=== PATIENT | male | born 1965 | race Caucasian/White ===

== ENCOUNTER 2021-03-29 21:26 | Inpatient (IN) | payer MEDICAID ==
[~2021-03-29] VITALS: Ht 175.3 cm; Wt 117.0 kg
[2021-03-30] VITALS (7 sets, daily range): BP systolic 108–203; BP diastolic 74–103
[2021-03-30] MEDS ORDERED: heparin 10,000 units/1 ML INJ IV ONE (05:25)
[2021-03-30] MEDS ORDERED: acetaminophen 325mg tablet PO PRN ×2 (05:25)
[2021-03-30] MEDS ORDERED: PERFLUTREN PROTEIN-A MICROSPHR (Optison) 0.22 MG/ML 3ML VIAL IV ONE (05:25)
[2021-03-30] MEDS ORDERED: magnesium 2GM in 50ml NS 50 ML IV PRN (05:25)
[2021-03-30] MEDS ORDERED: heparin 25,000 UNIT/250ml bag 250 ML IV SCH (05:25)
[2021-03-30] MEDS ORDERED: magnesium Cl slow-release 64mg tablet PO PRN (05:25)
[2021-03-30] MEDS ORDERED: potassium Cl 20 mEq SR tablet PO PRN ×2 (05:25)
[2021-03-30] MEDS ORDERED: magnesium 4gm in 100ml NS 100 ML IV PRN (05:25)
[2021-03-30] MEDS ORDERED: MESSAGE TO PHARMACY PO ONE (05:30)
[2021-03-30] MEDS ORDERED: dextrose 50%-water 50ml dispensing syringe IV PRN ×2 (05:30)
[2021-03-30] MEDS ORDERED: glucagon, human recombinant 1mg kit SUBCUT PRN (05:30)
[2021-03-30] MEDS ORDERED: dextrose ORAL solution 15 GM/59 ML bottle PO PRN ×2 (05:30)
[2021-03-30] MEDS ORDERED: regadenoson 0.4mg/5ml syringe IV PRN (06:15)
[2021-03-30] MEDS ORDERED: metoprolol tartrate 1mg/ml inj IV PRN (06:15)
[2021-03-30] MEDS ORDERED: aminophylline 250mg/10ml inj. IV PRN (06:15)
--- NOTE | 2021-03-30 06:32 | NUR ---
PT ARRIVED TO THE UNIT AT AROUND 0630, DR ARMSTRONG PAGED AND CAME TO ASSESS PATIENT. PT APPEARED LETHARGIC, COMPLAINED OF MILD CHEST PAIN. VITALS ARE STABLE, BG IS 213 AND BEDSIDE EKG PERFORMED, SEEN AND SIGNED BY THE DOCTOR. REPORT GIVEN TO MORNING SHIFT ANA Rehman
--- NOTE | 2021-03-30 06:35 | NUR ---
Patient in room PCU 3012. I have received report from Mandi PEREZ and had the opportunity to ask questions and assume patient care. Per Mandi, pt just arrived, EKG done, Dr. Liang signed, Dr. Liang aware of chest pain. pt semi fowlers in bed endorsing 5/10 chest pain.
--- NOTE | 2021-03-30 06:48 | NUR ---
Per Dr. Liang, start heparin at previous hospitals dose of 12U/KG. do not bolus.
[2021-03-30 06:51] LABS: PARTIAL THROMBOPLASTIN TIME 28 SECONDS (22-32)
--- NOTE | 2021-03-30 06:56 | NUR ---
When discussing new limited resusitation arm band to be place on pt, pt indicated that if his heart should stop and he should start breathing he DOES WANT TO BE INTUBATED> pt repeated, "yes, i want to be intubated if i stop breathing." limited arm band NOT placed on pt. Dr. Liang Paged and immediately called back. Dr. Liang acknowledged pt desires and stated "please discuss this with the morning doc and have that doc change the code status back to full code. " This nurse explained she will not place limited arm band on pt. Addendum: 03/30/21 at 0706 by Sherie Cooper RN While speaking to dr. liang, doc notified of pt's continued chest pain. Per Dr. Liang "the morning doc will take care of this. "
--- NOTE | 2021-03-30 07:02 | NUR ---
called pharmacy due to meds still not available for admin from [facility]. per pharmacy, height and weight needed. 5'9"/117kg given to pharmacy staff. staff to verify kendal so meds can be pulled.
--- NOTE | 2021-03-30 07:15 | NUR ---
Heparin bag still not available to pull from [facility]. pharmacy called again. Addendum: 03/30/21 at 0717 by Sherie Cooper RN spoke with saida in pharmacy. she stated, that everything should be available. Saida notified that it is not available, and the med is needed NOW. Saida stated, ok i will talk to the pharmacist.
[2021-03-30] MEDS: nitroGLYCERIN 0.4mg SUBLingual tab SL PRN (07:29)
--- NOTE | 2021-03-30 07:29 | NUR ---
0720 AM first dose nitro for chest pain 09/16 : BP 148/79; HR 96 0725 second dose SL nitro for chest pain 07/17: BP 123/65; HR 91
[2021-03-30] MEDS: heparin 25,000 UNIT/250ml bag 250 ML IV SCH (07:37)
--- NOTE | 2021-03-30 07:38 | NUR ---
after two doses SL nitro, CP resolved.
--- NOTE | 2021-03-30 07:46 | NUR ---
Addendum: 03/30/21 at 0747 by Sherie Cooper RN Dr. Strauss Paged regarding pt current status, desire for full code, Stress Test Staff declining to take pt at this time due to active chest pain/nitro use. "RE: Rene Sanz: [id number]: (Pt arrived via helicopter at 0515 from [place]) Pt with 7/10 chest pain, relieved after two nitros, pt wants to be full code now, NOT limited. Stress test ezequiel doesnt think pt stable enough. -Sherie #[phone] "
[2021-03-30] MEDS: K and/or MAG REPLACEMENT MC SCH ×2 (08:00→20:00)
--- NOTE | 2021-03-30 08:00 | NUR ---
Dr. Strauss called back, Carlos A gave new order for nitro patch, continue with heparin gtt, ok to hold bolus heparin, call doc when trops back. ok to hold stress test until doc sees pt.
--- NOTE | 2021-03-30 08:13 | NUR ---
Paged pharmacy for humalog Addendum: 03/30/21 at 0814 by Sherie Cooper RN "Good morning, pt type one diabetic and qualified for humalog. May i please have a vile? Thanks, -Sherie DARDEN"
[2021-03-30 08:40] LABS: ALBUMIN 3.2 G/DL (3.4-5.0); ANION GAP 10 (8-16); BLOOD UREA NITROGEN 15 MG/DL (7-18); BUN/CREATININE RATIO 11.2 (5.4-32.0); CALCIUM 9.8 MG/DL (8.5-10.1); CHLORIDE 96 MMOL/L (99-107); CREATININE 1.34 MG/DL (0.60-1.10); GLUCOSE 200 MG/DL (70-104); POTASSIUM 3.3 MMOL/L (3.5-5.1); SODIUM 131 MMOL/L (135-145); TOTAL CARBON DIOXIDE 25.2 MMOL/L (24-32); eGFR 56 ML/MIN
[2021-03-30 08:47] LABS: BASOPHILS # (AUTO) 0.1 X10'3 (0-0.2); BASOPHILS % (AUTO) 0.6 % (0-1); EOSINOPHILS % (AUTO) 0.3 % (0-6); HEMATOCRIT 39.6 % (42.0-52.0); HEMOGLOBIN 13.6 g/dl (14.0-17.9); LYMPHOCYTES # (AUTO) 3.5 X10'3 (1.1-4.8); LYMPHOCYTES % (AUTO) 25.8 % (21-51); MEAN CORPUSCULAR HEMOGLOBIN 29.2 PG (27.0-31.0); MEAN CORPUSCULAR HGB CONC 34.4 g/dL (33.0-36.5); MEAN CORPUSCULAR VOLUME 84.8 FL (78-98); MEAN PLATELET VOLUME 9.1 FL (7.4-10.4); MONOCYTES # (AUTO) 0.9 X10'3 (0-0.9); MONOCYTES % (AUTO) 6.7 % (2-12); NEUTROPHILS # (AUTO) 8.9 X10'3 (1.8-7.7); NEUTROPHILS % (AUTO) 66.6 % (42-75); PLATELET COUNT 242 X10'3 (140-440); RED BLOOD COUNT 4.67 X10'6 (4.70-6.10); RED CELL DISTRIBUTION WIDTH 15.9 % (11.5-14.5); WHITE BLOOD COUNT 13.4 X10'3 (4.5-11.0)
--- NOTE | 2021-03-30 09:00 | NUR ---
Dr Strauss ordered nurse to change pt's code status to Full Code in the computer. Addendum: 03/30/21 at 1418 by Sherie Cooper RN Dr. Strauss instruct nurse to increase heparin gtt to 1200 u/hr per Angela Pharmacist instruction.
[2021-03-30] MEDS: nitroGLYCERIN 0.2mg/hour patch TD SCH ×2 (09:07→09:26)
[2021-03-30] MEDS: normal saline 1000ml 1,000 ML IV SCH ×2 (09:15→15:36)
[2021-03-30] MEDS: CefTRIAXone 2gm/D5W 50ml BAG 50 ML IV SCH (09:24)
[2021-03-30] MEDS: HYDROcodone/acetaminophen 5mg/325mg tablet PO PRN ×2 (09:25→19:57)
[2021-03-30] MEDS: ondansetron/PF 4mg/2ml inj IV PRN (09:34)
[2021-03-30 09:51] LABS: CLARITY,URINE CLEAR (Clear); COLOR,URINE YELLOW (Yellow); GLUCOSE, URINE 500 mg/dl (Neg); KETONES,URINE NEGATIVE (Neg); LEUKOCYTE ESTERASE ,URINE NEGATIVE (Neg); NITRITES, URINE NEGATIVE (Neg); OCCULT BLOOD,URINE LARGE (Neg); PROTEIN,URINE NEGATIVE (Neg); UROBILINOGEN,URINE 0.2 E.U/dL (0.2-1.0)
[2021-03-30] MEDS: insulin Lispro (HumaLOG) vial - multi-dose SQ SCH ×3 (09:57→22:21)
[2021-03-30] MEDS ORDERED: PRAZ5CAP2 PO (10:04)
[2021-03-30] MEDS ORDERED: ALBU17AE26 INH (10:04)
[2021-03-30] MEDS ORDERED: INSU100I31 SQ (10:04)
[2021-03-30] MEDS ORDERED: INSU100I52 SQ (10:04)
[2021-03-30] MEDS ORDERED: GABA300C PO (10:04)
[2021-03-30] MEDS ORDERED: METO100T14 PO (10:04)
[2021-03-30] MEDS ORDERED: TEMA30CA PO (10:04)
[2021-03-30] MEDS ORDERED: CYAN50003 PO (10:04)
[2021-03-30] MEDS ORDERED: ATOR20TA66 PO (10:04)
[2021-03-30] MEDS ORDERED: FLO0.4C PO (10:04)
[2021-03-30] MEDS ORDERED: LISI40TA13 PO (10:04)
[2021-03-30] MEDS ORDERED: DULA0.75 SQ (10:04)
[2021-03-30] MEDS ORDERED: CLON0.1T PO (10:04)
[2021-03-30] MEDS ORDERED: CHOL500050 PO (10:04)
[2021-03-30] MEDS ORDERED: OMEP-50 PO (10:04)
[2021-03-30] MEDS ORDERED: POTA10CA44 PO (10:04)
[2021-03-30] MEDS ORDERED: LORA-269 PO (10:04)
[2021-03-30 10:06] LABS: UA COLLECTION TYPE NON-SPECIFIED
[2021-03-30 10:07] LABS: SQUAMOUS EPITHELIAL CELL,UR FEW /LPF (FEW)
[2021-03-30 10:10] LABS: BACTERIA,URINE FEW /HPF (Neg); WBC,URINE 0-4 /HPF (0-4)
--- NOTE | 2021-03-30 10:41 | NUR ---
Orders for echo and chest xray put in per Dr. Sawyer.
--- NOTE | 2021-03-30 11:28 | NUR ---
Paged Dr. Strauss regrading critical result of 3 hr. troponin. PAGER ID: [phone] MESSAGE: [id number]. ROMARIO JOHNSON. CRITICAL RESULTS OF 3 HR TROPONIN OF 187. THANK YOU. KELVIN PEREZ X [phone]
[2021-03-30] MEDS: potassium CL 10mEq/100ml bag 100 ML IV PRN ×3 (12:02→15:11)
[2021-03-30] MEDS: morphine 2 MG/ML inj. syringe IV PRN (12:02)
--- NOTE | 2021-03-30 13:32 | NUR ---
Paged Dr. Strauss regarding nausea medication. PAGER ID: [phone] MESSAGE: [phone]. ROMARIO JOHNSON. PATIENT STILL NAUSEOUS AND VOMITING AND HAS ZOFRAN ORDERED Q6H. WOULD YOU LIKE TO ADD ANOTHER ANTI-NAUSEA MED? THANK YOU. CHANEL PEREZ X [phone] Addendum: 03/30/21 at 1343 by Chanel Beatty RN Dr. Strauss called back and gave orders for compazine 10mg.
--- NOTE | 2021-03-30 13:43 | NUR ---
Orders for compazine 10mg IV put in per Dr. Strauss.
[2021-03-30] MEDS: proCHLORperazine 10 MG/2 ml inj IV PRN ×3 (14:04→20:20)
[2021-03-30] MEDS: atorvastatin 20mg tablet PO SCH (14:16)
[2021-03-30] MEDS: heparin 10,000 units/1 ML INJ IV PRN ×2 (14:34→20:23)
--- NOTE | 2021-03-30 14:59 | NUR ---
Pt hypertensive. Dr. Strauss Paged. "PAGER ID: [phone] MESSAGE: RE: Rene Sanz: [id number]: BP 203/103. would you like me to give something prn? or even routine? -Sherie #[phone]" Dr. Strauss called immediately back. new order for hydralazine IV prn.
[2021-03-30] MEDS: hydrALAZINE 20mg/ml inj. IV PRN (15:10)
--- NOTE | 2021-03-30 15:55 | NUR ---
Dr. Sawyer to see pt. Dr. Strauss notified. "PAGER ID: [phone] MESSAGE: RE: Rene Sanz: [id number]: Silverio came to see pt. stated issue not Cardiac. new order amylase/lypase check and abd CT. do you want me to continue the heparin gtt? pt continues retching/nausea -Sherie #[phone]" Addendum: 03/30/21 at 1556 by Sherie Cooper RN Dr. Sawyer also stated no need for ashley scan.
[2021-03-30 16:26] LABS: AMYLASE 68 U/L (25-115); LIPASE 536 U/L (73-393)
--- NOTE | 2021-03-30 18:29 | NUR ---
Problems reprioritized. Patient report given, questions answered & plan of care reviewed with Lupe PEREZ. Lupe and this nurse completed bed side report. Pt repositioned, [address] heparin and potassium running.
[2021-03-30] MEDS: carVEDilol 3.125mg tablet PO SCH (19:56)
[2021-03-30] MEDS: insulin glargine (Lantus) pen - multi-dose SQ SCH (21:00)
[2021-03-30] MEDS ORDERED: temazepam 15mg capsule PO PRN (21:00)
--- NOTE | 2021-03-30 23:37 | NUR ---
Troponin result of 329 was reported to night hospitalist Doctor Kalina with no new order
[2021-03-31] VITALS (14 sets, daily range): BP systolic 126–183; BP diastolic 74–99
[2021-03-31] MEDS: normal saline 1000ml 1,000 ML IV SCH ×3 (01:25→20:11)
[2021-03-31 01:56] LABS: BASOPHILS # (AUTO) 0.1 X10'3 (0-0.2); BASOPHILS % (AUTO) 0.5 % (0-1); EOSINOPHILS % (AUTO) 0.1 % (0-6); HEMOGLOBIN 13.5 g/dl (14.0-17.9); LYMPHOCYTES # (AUTO) 2.3 X10'3 (1.1-4.8); LYMPHOCYTES % (AUTO) 20.4 % (21-51); MEAN CORPUSCULAR HEMOGLOBIN 29.2 PG (27.0-31.0); MEAN CORPUSCULAR HGB CONC 34.7 g/dL (33.0-36.5); MEAN CORPUSCULAR VOLUME 84.1 FL (78-98); MEAN PLATELET VOLUME 8.7 FL (7.4-10.4); MONOCYTES # (AUTO) 0.7 X10'3 (0-0.9); MONOCYTES % (AUTO) 6.6 % (2-12); NEUTROPHILS # (AUTO) 8.2 X10'3 (1.8-7.7); NEUTROPHILS % (AUTO) 72.4 % (42-75); PLATELET COUNT 236 X10'3 (140-440); RED BLOOD COUNT 4.64 X10'6 (4.70-6.10); RED CELL DISTRIBUTION WIDTH 15.7 % (11.5-14.5); WHITE BLOOD COUNT 11.3 X10'3 (4.5-11.0)
[2021-03-31 02:06] LABS: ALANINE AMINOTRANSFERASE 34 U/L (12-78); ALBUMIN 3.3 G/DL (3.4-5.0); ALBUMIN/GLOBULIN RATIO 0.9 (1.1-1.5); ALKALINE PHOSPHATASE 110 IU/L (46-116); ANION GAP 14 (8-16); ASPARTATE AMINO TRANSFERASE 32 U/L (10-37); BILIRUBIN,TOTAL 1.2 MG/DL (0.1-1.0); BLOOD UREA NITROGEN 20 MG/DL (7-18); BUN/CREATININE RATIO 15.5 (5.4-32.0); CALCIUM 8.9 MG/DL (8.5-10.1); CHLORIDE 98 MMOL/L (99-107); CREATININE 1.29 MG/DL (0.60-1.10); GLUCOSE 220 MG/DL (70-104); SODIUM 135 MMOL/L (135-145); TOTAL CARBON DIOXIDE 23.4 MMOL/L (24-32); TOTAL PROTEIN 7.1 G/DL (6.4-8.2); eGFR 58 ML/MIN
[2021-03-31] MEDS: potassium CL 10mEq/100ml bag 100 ML IV PRN ×5 (02:55→11:33)
[2021-03-31] MEDS: proCHLORperazine 10 MG/2 ml inj IV PRN ×2 (03:24→09:49)
[2021-03-31 03:41] LABS: PARTIAL THROMBOPLASTIN TIME 24 SECONDS (22-32)
[2021-03-31] MEDS: heparin 10,000 units/1 ML INJ IV PRN ×3 (05:57→18:08)
--- NOTE | 2021-03-31 06:40 | NUR ---
Problems reprioritized. Patient report given, questions answered & plan of care reviewed with Gabriela Goldman .
--- NOTE | 2021-03-31 07:17 | NUR ---
Patient pulled out iv, difficult iv start, heparin drip paused until IV access is achieved,
--- NOTE | 2021-03-31 07:22 | NUR ---
Called charge account authorizer from another floor for iv start, they are also having difficulty. patient is painful and short of breath at this time and is npo with no iv access to give medications.
--- NOTE | 2021-03-31 07:25 | NUR ---
PAGER ID: [phone] MESSAGE: SammyUmu 12 hour troponin critically high last night, Dr. eden made NPO for possible ashley scan which dr. Sawyer cancelled yesterday because troponins were okay until the 12 hour, just to let you know. Gabriela [phone]
--- NOTE | 2021-03-31 07:55 | NUR ---
PAGER ID: [phone] MESSAGE: [id number], Umu has no IV access, hard stick, has a vein in lower extremity. can i get an order for iv in the foot please? chela [phone] (134 character message out of a maximum of 240)
[2021-03-31] MEDS: atorvastatin 20mg tablet PO SCH (08:00)
[2021-03-31] MEDS: K and/or MAG REPLACEMENT MC SCH ×2 (08:00→20:08)
[2021-03-31] MEDS: carVEDilol 3.125mg tablet PO SCH ×2 (08:00→20:03)
[2021-03-31 08:18] LABS: PARTIAL THROMBOPLASTIN TIME 67 SECONDS (22-32)
[2021-03-31] MEDS: heparin 25,000 UNIT/250ml bag 250 ML IV SCH (08:20)
[2021-03-31] MEDS: aspirin 81mg tab.chew PO SCH (08:30)
--- NOTE | 2021-03-31 08:35 | NUR ---
PAGER ID: [phone] MESSAGE: [id number], Umu, patient had a critically high troponin overnight magu made NPO, nicole cancelled ashley yesterday before troponins became elevated, patient complaining of CP this AM, EKG done and in chart. chela [phone]
[2021-03-31] MEDS: nitroGLYCERIN 0.2mg/hour patch TD SCH (08:38)
[2021-03-31] MEDS ORDERED: albuterol 2.5 MG/3 ML nebule NEB PRN (08:50)
[2021-03-31] MEDS: ondansetron/PF 4mg/2ml inj IV PRN (08:51)
[2021-03-31] MEDS: CefTRIAXone 2gm/D5W 50ml BAG 50 ML IV SCH (08:52)
[2021-03-31] MEDS: hydrALAZINE 20mg/ml inj. IV PRN (08:52)
[2021-03-31] MEDS: insulin Lispro (HumaLOG) vial - multi-dose SQ SCH ×3 (09:01→17:08)
--- NOTE | 2021-03-31 09:30 | NUR ---
Patient is flushed, anxious, shaky and just overall restless this morning. complaining of chest pain, VSS stable, EKG performed, spoke with charge operator MD believes chest pain is non cardiac in nature, nitro patch applied this AM, gave IV hydralazine for elevated blood pressure. Spoke with MD regarding patient stat trop, lipase and PTT ordered to restart heparin drip as we lost IV access and could not get anything.
[2021-03-31] MEDS: ipratropium/albuterol 3ml nebule NEB PRN ×2 (09:31→19:09)
[2021-03-31] MEDS: morphine 2 MG/ML inj. syringe IV PRN (09:38)
--- NOTE | 2021-03-31 09:44 | NUR ---
RT at bedside patients sp02 is 98%, still short of breath, endorses anxiety history and per med rec does take ativan and tenazapam at home, med rec never addressed. Paged
[2021-03-31] MEDS ORDERED: LORazepam 2 mg/ml vial IV PRN (09:45)
[2021-03-31] MEDS ORDERED: LORazepam 1 MG tablet PO PRN (09:45)
--- NOTE | 2021-03-31 09:47 | NUR ---
PAGER ID: [phone] MESSAGE: [id number] i am sorry to page you so much but this patient is NPO, and hypertensive after hydralazine, has coreg ordered for this AM, would you like me to give this? chela [phone] (700 character m
--- NOTE | 2021-03-31 10:09 | NUR ---
PAGER ID: [phone] MESSAGE: [phone], Umu IV access was lost for almost 2 hours this morning while on heparin drip, got a line in and vlad a stat ptt he is low at 26, do you want me to start fresh since it was off for 2 hours or use what was running? chela [phone]
--- NOTE | 2021-03-31 10:20 | NUR ---
Heparin IV and potassium compatible per pharmacy
--- NOTE | 2021-03-31 11:07 | NUR ---
Diabetes consult: Noted A1C 7.6. Pt seen at bedside and he declined verbal ed at this time though accepted written DM ed w/ RD contact info. Encouraged pt to reach out to OLIVIA perales/ any further questions Addendum: 03/31/21 at [address] Amended: Links added.
--- NOTE | 2021-03-31 11:43 | NUR ---
Report given to Efrain, third IV potassium given, PICC RN paged for another line for nitro drip and or potassium infusion.
[2021-03-31] MEDS: nitroGLYCERIN-Tridil 50MG/D5W 250 ML IV SCH (13:14)
[2021-03-31] MEDS ORDERED: magnesium 4gm in 100ml NS 100 ML IV PRN (15:05)
[2021-03-31] MEDS ORDERED: magnesium 2GM in 50ml NS 50 ML IV PRN (15:05)
[2021-03-31 15:39] LABS: MAGNESIUM 1.7 MG/DL (1.5-2.4)
[2021-03-31] MEDS: lactobacillus rhamnosus 10,000 MMU CELLS/CAPSULE PO SCH (20:03)
[2021-03-31] MEDS: pantoprazole 40MG/NS 100ML BAG 100 ML IV SCH (20:11)
[2021-03-31] MEDS: insulin glargine (Lantus) pen - multi-dose SQ SCH (22:29)
[2021-04-01] VITALS (11 sets, daily range): BP systolic 118–172; BP diastolic 77–103
[2021-04-01] MEDS: heparin 10,000 units/1 ML INJ IV PRN (00:11)
[2021-04-01] MEDS: pantoprazole 40MG/NS 100ML BAG 100 ML IV SCH ×4 (01:26→16:32)
[2021-04-01] MEDS: hydrALAZINE 20mg/ml inj. IV PRN ×2 (03:11→15:26)
[2021-04-01 07:47] LABS: BASOPHILS % (AUTO) 0.5 % (0-1); EOSINOPHILS # (AUTO) 0.1 X10'3 (0-0.9); EOSINOPHILS % (AUTO) 0.7 % (0-6); LYMPHOCYTES # (AUTO) 2.8 X10'3 (1.1-4.8); LYMPHOCYTES % (AUTO) 28.5 % (21-51); MEAN CORPUSCULAR HEMOGLOBIN 29.7 PG (27.0-31.0); MEAN CORPUSCULAR HGB CONC 34.4 g/dL (33.0-36.5); MEAN CORPUSCULAR VOLUME 86.5 FL (78-98); MEAN PLATELET VOLUME 8.6 FL (7.4-10.4); MONOCYTES # (AUTO) 0.8 X10'3 (0-0.9); MONOCYTES % (AUTO) 7.8 % (2-12); NEUTROPHILS # (AUTO) 6.2 X10'3 (1.8-7.7); NEUTROPHILS % (AUTO) 62.5 % (42-75); PLATELET COUNT 230 X10'3 (140-440); RED BLOOD COUNT 4.39 X10'6 (4.70-6.10); WHITE BLOOD COUNT 9.9 X10'3 (4.5-11.0)
[2021-04-01 07:57] LABS: ALANINE AMINOTRANSFERASE 32 U/L (12-78); ALBUMIN 3.3 G/DL (3.4-5.0); ALBUMIN/GLOBULIN RATIO 0.9 (1.1-1.5); ALKALINE PHOSPHATASE 100 IU/L (46-116); ANION GAP 13 (8-16); ASPARTATE AMINO TRANSFERASE 28 U/L (10-37); BLOOD UREA NITROGEN 17 MG/DL (7-18); BUN/CREATININE RATIO 15.5 (5.4-32.0); CHLORIDE 100 MMOL/L (99-107); GLUCOSE 196 MG/DL (70-104); MAGNESIUM 1.8 MG/DL (1.5-2.4); POTASSIUM 3.5 MMOL/L (3.5-5.1); SODIUM 134 MMOL/L (135-145); TOTAL CARBON DIOXIDE 21.5 MMOL/L (24-32); TOTAL PROTEIN 6.9 G/DL (6.4-8.2); eGFR 70 ML/MIN
[2021-04-01] MEDS: K and/or MAG REPLACEMENT MC SCH ×2 (08:00→20:00)
[2021-04-01] MEDS: CefTRIAXone 2gm/D5W 50ml BAG 50 ML IV SCH (08:15)
[2021-04-01] MEDS: lactobacillus rhamnosus 10,000 MMU CELLS/CAPSULE PO SCH ×2 (08:15→20:53)
[2021-04-01] MEDS: carVEDilol 3.125mg tablet PO SCH ×2 (08:15→20:52)
[2021-04-01] MEDS: aspirin 81mg tab.chew PO SCH (08:15)
[2021-04-01] MEDS: atorvastatin 20mg tablet PO SCH (08:15)
[2021-04-01] MEDS: normal saline 1000ml 1,000 ML IV SCH ×2 (08:16→17:21)
[2021-04-01] MEDS: insulin Lispro (HumaLOG) vial - multi-dose SQ SCH ×2 (08:50→17:28)
[2021-04-01] MEDS ORDERED: iohexol 350MG/ML 100ml bottle IV ONE (10:30)
[2021-04-01] MEDS ORDERED: LORazepam 1 MG tablet PO PRN (11:10)
[2021-04-01] MEDS ORDERED: temazepam 15mg capsule PO PRN (11:15)
[2021-04-01] MEDS: gabapentin 300mg capsule PO SCH ×2 (12:27→20:54)
[2021-04-01] MEDS: lisinopril 20mg tablet PO SCH (12:28)
[2021-04-01] MEDS ORDERED: ketorolac trometh. 30mg/ml inj. IV ONE (14:20)
[2021-04-01] MEDS: celeCOXIB 100mg capsule PO SCH (15:28)
[2021-04-01] MEDS: metoprolol tartrate 25mg tablet PO SCH (20:53)
[2021-04-01] MEDS: cloNIDine 0.1 mg tablet PO SCH (20:54)
[2021-04-01] MEDS: prazosin 5mg capsule PO SCH (20:54)
[2021-04-01] MEDS ORDERED: tamsulosin 0.4mg capsule PO SCH (21:00)
[2021-04-01] MEDS: insulin glargine (Lantus) pen - multi-dose SQ SCH (21:29)
[2021-04-01] MEDS: HYDROcodone/acetaminophen 5mg/325mg tablet PO PRN (21:36)
[2021-04-02] VITALS (8 sets, daily range): BP systolic 89–131; BP diastolic 54–74
[2021-04-02] MEDS: pantoprazole 40MG/NS 100ML BAG 100 ML IV SCH ×3 (00:02→09:25)
[2021-04-02 06:29] LABS: BASOPHILS % (AUTO) 0.4 % (0-1); EOSINOPHILS # (AUTO) 0.1 X10'3 (0-0.9); EOSINOPHILS % (AUTO) 1.3 % (0-6); HEMATOCRIT 31.6 % (42.0-52.0); HEMOGLOBIN 11.1 g/dl (14.0-17.9); LYMPHOCYTES # (AUTO) 2.5 X10'3 (1.1-4.8); LYMPHOCYTES % (AUTO) 33.4 % (21-51); MEAN CORPUSCULAR HEMOGLOBIN 29.9 PG (27.0-31.0); MEAN CORPUSCULAR HGB CONC 35.1 g/dL (33.0-36.5); MEAN CORPUSCULAR VOLUME 85.2 FL (78-98); MEAN PLATELET VOLUME 8.6 FL (7.4-10.4); MONOCYTES # (AUTO) 0.7 X10'3 (0-0.9); MONOCYTES % (AUTO) 9.6 % (2-12); NEUTROPHILS # (AUTO) 4.2 X10'3 (1.8-7.7); NEUTROPHILS % (AUTO) 55.3 % (42-75); PLATELET COUNT 179 X10'3 (140-440); RED BLOOD COUNT 3.71 X10'6 (4.70-6.10); WHITE BLOOD COUNT 7.6 X10'3 (4.5-11.0)
[2021-04-02 06:50] LABS: ALANINE AMINOTRANSFERASE 35 U/L (12-78); ALBUMIN 2.8 G/DL (3.4-5.0); ALBUMIN/GLOBULIN RATIO 0.9 (1.1-1.5); ALKALINE PHOSPHATASE 79 IU/L (46-116); ANION GAP 9 (8-16); ASPARTATE AMINO TRANSFERASE 24 U/L (10-37); BILIRUBIN,TOTAL 0.7 MG/DL (0.1-1.0); BLOOD UREA NITROGEN 30 MG/DL (7-18); BUN/CREATININE RATIO 16.9 (5.4-32.0); CALCIUM 8.2 MG/DL (8.5-10.1); CHLORIDE 100 MMOL/L (99-107); CREATININE 1.77 MG/DL (0.60-1.10); GLUCOSE 161 MG/DL (70-104); MAGNESIUM 2.1 MG/DL (1.5-2.4); POTASSIUM 3.9 MMOL/L (3.5-5.1); SODIUM 133 MMOL/L (135-145); TOTAL CARBON DIOXIDE 24.2 MMOL/L (24-32); TOTAL PROTEIN 5.8 G/DL (6.4-8.2); eGFR 40 ML/MIN
--- NOTE | 2021-04-02 07:00 | NUR ---
Patient in room PCU 3013. I have received report from Iván and had the opportunity to ask questions and assume patient care.
[2021-04-02] MEDS: carVEDilol 3.125mg tablet PO SCH ×2 (08:00→19:52)
[2021-04-02] MEDS: K and/or MAG REPLACEMENT MC SCH ×2 (08:00→19:52)
[2021-04-02] MEDS ORDERED: atorvastatin 20mg tablet PO SCH (08:00)
[2021-04-02] MEDS ORDERED: ergocalciferol (vit D2) capsule 50,000 UNITS (1,250mcg) CAPSULE PO SCH (08:00)
[2021-04-02] MEDS: lisinopril 20mg tablet PO SCH (08:00)
[2021-04-02] MEDS: metoprolol tartrate 25mg tablet PO SCH ×2 (08:00→19:51)
[2021-04-02] MEDS: celeCOXIB 100mg capsule PO SCH (09:20)
[2021-04-02] MEDS: lactobacillus rhamnosus 10,000 MMU CELLS/CAPSULE PO SCH ×2 (09:20→19:51)
[2021-04-02] MEDS: aspirin 81mg tab.chew PO SCH (09:20)
[2021-04-02] MEDS: cholecalciferol (vitamin D3) 1,000 unit (25mcg) tablet PO SCH (09:21)
[2021-04-02] MEDS: atorvastatin 20mg tablet PO SCH (09:22)
[2021-04-02] MEDS: normal saline 1000ml 1,000 ML IV SCH ×3 (09:25→23:25)
[2021-04-02] MEDS: CefTRIAXone 2gm/D5W 50ml BAG 50 ML IV SCH (09:26)
[2021-04-02] MEDS: gabapentin 300mg capsule PO SCH ×3 (09:27→21:03)
--- NOTE | 2021-04-02 10:00 | NUR ---
Patient refused morning insulin. Blood sugar at 0700-154mg/dl and on level 4 protocol. Will continue to monitor. Provider made aware
[2021-04-02] MEDS: nitroGLYCERIN-Tridil 50MG/D5W 250 ML IV SCH (11:15)
[2021-04-02] MEDS: pantoprazole 40mg Tablet.DR PO SCH (12:07)
[2021-04-02] MEDS: morphine 2 MG/ML inj. syringe IV PRN (12:28)
[2021-04-02] MEDS: insulin Lispro (HumaLOG) vial - multi-dose SQ SCH (14:09)
[2021-04-02] MEDS ORDERED: HYDROcodone/acetaminophen 10/325mg tab PO PRN (17:15)
--- NOTE | 2021-04-02 19:15 | NUR ---
Problems reprioritized. Patient report given, questions answered & plan of care reviewed with Janay.
[2021-04-02] MEDS: HYDROcodone/acetaminophen 5mg/325mg tablet PO PRN (19:51)
[2021-04-02] MEDS: cloNIDine 0.1 mg tablet PO SCH (21:03)
[2021-04-02] MEDS: prazosin 5mg capsule PO SCH (21:07)
[2021-04-02] MEDS: insulin glargine (Lantus) pen - multi-dose SQ SCH (21:20)
[2021-04-03] VITALS (10 sets, daily range): BP systolic 108–165; BP diastolic 61–85
--- NOTE | 2021-04-03 06:45 | NUR ---
Patient in room PCU 3013. I have received report from Janay and had the opportunity to ask questions and assume patient care.
[2021-04-03] MEDS: K and/or MAG REPLACEMENT MC SCH ×2 (08:00→20:00)
[2021-04-03] MEDS: metoprolol tartrate 25mg tablet PO SCH ×2 (08:00→20:23)
[2021-04-03] MEDS: CefTRIAXone 2gm/D5W 50ml BAG 50 ML IV SCH (08:28)
[2021-04-03] MEDS: carVEDilol 3.125mg tablet PO SCH ×2 (08:28→20:22)
[2021-04-03] MEDS: celeCOXIB 100mg capsule PO SCH (08:29)
[2021-04-03] MEDS: lactobacillus rhamnosus 10,000 MMU CELLS/CAPSULE PO SCH ×2 (08:29→20:22)
[2021-04-03] MEDS: cholecalciferol (vitamin D3) 1,000 unit (25mcg) tablet PO SCH (08:29)
[2021-04-03] MEDS: lisinopril 20mg tablet PO SCH (08:30)
[2021-04-03] MEDS: atorvastatin 20mg tablet PO SCH (08:30)
[2021-04-03] MEDS: aspirin 81mg tab.chew PO SCH (08:30)
[2021-04-03] MEDS: pantoprazole 40mg Tablet.DR PO SCH (08:30)
[2021-04-03] MEDS: gabapentin 300mg capsule PO SCH ×3 (08:30→20:22)
[2021-04-03 08:36] LABS: BASOPHILS % (AUTO) 0.6 % (0-1); EOSINOPHILS # (AUTO) 0.1 X10'3 (0-0.9); HEMATOCRIT 33.4 % (42.0-52.0); HEMOGLOBIN 11.3 g/dl (14.0-17.9); LYMPHOCYTES # (AUTO) 2.5 X10'3 (1.1-4.8); LYMPHOCYTES % (AUTO) 36.7 % (21-51); MEAN CORPUSCULAR HEMOGLOBIN 29.6 PG (27.0-31.0); MEAN CORPUSCULAR HGB CONC 33.9 g/dL (33.0-36.5); MEAN CORPUSCULAR VOLUME 87.3 FL (78-98); MONOCYTES # (AUTO) 0.7 X10'3 (0-0.9); MONOCYTES % (AUTO) 10.1 % (2-12); NEUTROPHILS # (AUTO) 3.4 X10'3 (1.8-7.7); NEUTROPHILS % (AUTO) 50.6 % (42-75); PLATELET COUNT 181 X10'3 (140-440); RED BLOOD COUNT 3.82 X10'6 (4.70-6.10); RED CELL DISTRIBUTION WIDTH 15.9 % (11.5-14.5); WHITE BLOOD COUNT 6.7 X10'3 (4.5-11.0)
[2021-04-03] MEDS: insulin Lispro (HumaLOG) vial - multi-dose SQ SCH ×2 (08:40→14:38)
[2021-04-03 08:58] LABS: ALANINE AMINOTRANSFERASE 38 U/L (12-78); ALBUMIN 2.6 G/DL (3.4-5.0); ALBUMIN/GLOBULIN RATIO 0.9 (1.1-1.5); ALKALINE PHOSPHATASE 79 IU/L (46-116); ANION GAP 12 (8-16); ASPARTATE AMINO TRANSFERASE 18 U/L (10-37); BILIRUBIN,TOTAL 0.4 MG/DL (0.1-1.0); BLOOD UREA NITROGEN 24 MG/DL (7-18); BUN/CREATININE RATIO 20.5 (5.4-32.0); CHLORIDE 105 MMOL/L (99-107); CREATININE 1.17 MG/DL (0.60-1.10); GLUCOSE 160 MG/DL (70-104); MAGNESIUM 2.2 MG/DL (1.5-2.4); POTASSIUM 4.1 MMOL/L (3.5-5.1); SODIUM 139 MMOL/L (135-145); TOTAL CARBON DIOXIDE 22.2 MMOL/L (24-32); TOTAL PROTEIN 5.5 G/DL (6.4-8.2); eGFR 65 ML/MIN
[2021-04-03] MEDS ORDERED: HYDR-3972 PO (11:01)
[2021-04-03] MEDS: normal saline 1000ml 1,000 ML IV SCH ×2 (14:31→19:25)
--- NOTE | 2021-04-03 16:06 | NUR ---
Patient d/c with transportation set up for grape picker. Per charge nurse, when transportation company called the hospital and spoke with someone at the ED, they were told that there is no patient of that name in the hospital. Charge nurse contact the transportation company and was made aware that patient will be picked up on 04/04/21. Dr. Morgan made aware and states that's ok for patient to leave tomorrow.
[2021-04-03] MEDS: prazosin 5mg capsule PO SCH (20:21)
[2021-04-03] MEDS: cloNIDine 0.1 mg tablet PO SCH (20:22)
[2021-04-03] MEDS: insulin glargine (Lantus) pen - multi-dose SQ SCH (21:57)
[2021-04-04 02:00] VITALS: BP 151/84
[2021-04-04] MEDS: normal saline 1000ml 1,000 ML IV SCH (02:33)
[2021-04-04 06:50] LABS: BASOPHILS # (AUTO) 0.1 X10'3 (0-0.2); BASOPHILS % (AUTO) 0.8 % (0-1); EOSINOPHILS # (AUTO) 0.2 X10'3 (0-0.9); EOSINOPHILS % (AUTO) 2.5 % (0-6); HEMATOCRIT 34.8 % (42.0-52.0); HEMOGLOBIN 11.8 g/dl (14.0-17.9); LYMPHOCYTES # (AUTO) 2.4 X10'3 (1.1-4.8); MEAN CORPUSCULAR HEMOGLOBIN 29.8 PG (27.0-31.0); MEAN CORPUSCULAR VOLUME 87.7 FL (78-98); MEAN PLATELET VOLUME 8.9 FL (7.4-10.4); MONOCYTES # (AUTO) 0.7 X10'3 (0-0.9); MONOCYTES % (AUTO) 11.3 % (2-12); NEUTROPHILS % (AUTO) 47.4 % (42-75); PLATELET COUNT 205 X10'3 (140-440); RED BLOOD COUNT 3.97 X10'6 (4.70-6.10); RED CELL DISTRIBUTION WIDTH 16.3 % (11.5-14.5); WHITE BLOOD COUNT 6.2 X10'3 (4.5-11.0)
--- NOTE | 2021-04-04 06:54 | NUR ---
Patient in room PCU 3013. I have received report from Lupe and had the opportunity to ask questions and assume patient care.
[2021-04-04 06:55] LABS: ALANINE AMINOTRANSFERASE 35 U/L (12-78); ALBUMIN 2.7 G/DL (3.4-5.0); ALBUMIN/GLOBULIN RATIO 0.9 (1.1-1.5); ALKALINE PHOSPHATASE 79 IU/L (46-116); ANION GAP 8 (8-16); ASPARTATE AMINO TRANSFERASE 19 U/L (10-37); BILIRUBIN,TOTAL 0.5 MG/DL (0.1-1.0); BLOOD UREA NITROGEN 17 MG/DL (7-18); BUN/CREATININE RATIO 15.6 (5.4-32.0); CALCIUM 8.2 MG/DL (8.5-10.1); CHLORIDE 106 MMOL/L (99-107); CREATININE 1.09 MG/DL (0.60-1.10); GLUCOSE 144 MG/DL (70-104); MAGNESIUM 1.9 MG/DL (1.5-2.4); POTASSIUM 4.3 MMOL/L (3.5-5.1); SODIUM 138 MMOL/L (135-145); TOTAL CARBON DIOXIDE 24.2 MMOL/L (24-32); TOTAL PROTEIN 5.8 G/DL (6.4-8.2); eGFR 71 ML/MIN
[2021-04-04 07:00] VITALS: BP 136/70
--- NOTE | 2021-04-04 07:02 | NUR ---
Problems reprioritized. Patient report given, questions answered & plan of care reviewed with Yue PEREZ.
[2021-04-04 08:00] VITALS: BP_SYST 136
[2021-04-04] MEDS: metoprolol tartrate 25mg tablet PO SCH ×2 (08:00→08:42)
[2021-04-04] MEDS: K and/or MAG REPLACEMENT MC SCH (08:00)
[2021-04-04] MEDS ORDERED: ergocalciferol (vit D2) capsule 50,000 UNITS (1,250mcg) CAPSULE PO SCH (08:00)
[2021-04-04] MEDS: lactobacillus rhamnosus 10,000 MMU CELLS/CAPSULE PO SCH (08:38)
[2021-04-04] MEDS: pantoprazole 40mg Tablet.DR PO SCH (08:39)
[2021-04-04] MEDS: cholecalciferol (vitamin D3) 1,000 unit (25mcg) tablet PO SCH (08:39)
[2021-04-04] MEDS: celeCOXIB 100mg capsule PO SCH (08:40)
[2021-04-04] MEDS: gabapentin 300mg capsule PO SCH (08:40)
[2021-04-04] MEDS: aspirin 81mg tab.chew PO SCH (08:40)
[2021-04-04] MEDS: atorvastatin 20mg tablet PO SCH (08:40)
[2021-04-04] MEDS: CefTRIAXone 2gm/D5W 50ml BAG 50 ML IV SCH (08:41)
[2021-04-04] MEDS: carVEDilol 3.125mg tablet PO SCH (08:43)
[2021-04-04] MEDS: lisinopril 20mg tablet PO SCH (08:43)
[2021-04-04] MEDS: insulin Lispro (HumaLOG) vial - multi-dose SQ SCH (08:51)
--- NOTE | 2021-04-04 09:14 | NUR ---
PAGER ID: [phone] MESSAGE: [email or web address], WE ARE WORKING ON TRANSPORTATION FOR 3013A TO DISCHARGE. CAN I PLACE DC ORDER WHEN WE GET HIS RIDE ESTABLISHED? THX.
--- NOTE | 2021-04-04 10:15 | NUR ---
Patient has been d/c to go home with d/c instructions/directions printed and verbally given to patient. 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 Patient is aware to sweet pickled fruit maker prescription medication sent to pharmacy by provider. All due AM meds. administered and tolerated well. gambling monitor and IV line removed. He was transported to the [facility] via wheel chair by [facility] with no s/s of pain or distress noted.
== END 2021-04-04 09:42 | disposition home or self-care (01) | DRG 203 ==
LOC: PCU 3S 21:26
PROVIDERS: ADMIT Internal Medicine; ATTEND Family Medicine
PROC: B32T1ZZ Computerized Tomography (CT Scan) of Left Pulmonary Artery using Low Osmolar Contrast (ICD-10-PCS; principal; 2021-04-01)
PROC: B3201ZZ Computerized Tomography (CT Scan) of Thoracic Aorta using Low Osmolar Contrast (ICD-10-PCS; 2021-04-01)
PROC: B32S1ZZ Computerized Tomography (CT Scan) of Right Pulmonary Artery using Low Osmolar Contrast (ICD-10-PCS; 2021-04-01)
DX: M94.0 Chondrocostal junction syndrome [Tietze] (principal); I21.A1 Myocardial infarction type 2; K85.90 Acute pancreatitis without necrosis or infection, unspecified; J18.9 Pneumonia, unspecified organism; E87.1 Hypo-osmolality and hyponatremia; E11.22 Type 2 diabetes mellitus with diabetic chronic kidney disease; I13.10 Hypertensive heart and chronic kidney disease without heart failure, with stage 1 through stage 4 chronic kidney disease, or unspecified chronic kidney disease; E86.0 Dehydration; F12.90 Cannabis use, unspecified, uncomplicated; I25.10 Atherosclerotic heart disease of native coronary artery without angina pectoris; E87.6 Hypokalemia; K29.70 Gastritis, unspecified, without bleeding; N18.30 Chronic kidney disease, stage 3 unspecified; E66.01 Morbid (severe) obesity due to excess calories; I25.2 Old myocardial infarction; Z86.73 Personal history of transient ischemic attack (TIA), and cerebral infarction without residual deficits; Z79.899 Other long term (current) drug therapy; Z90.49 Acquired absence of other specified parts of digestive tract; Z68.38 Body mass index [BMI] 38.0-38.9, adult
CPT/HCPCS: 36415; 36569; 71045; 71275; 72074; 74176; 80048; 80053; 81001; 82150; 82948; 83036; 83605; 83690; 83735; 84484; 85025; 85610; 85651; 85730; 86140; 87040; 93005; 93306; 94640; 94760; 97161; 97530; C9113; G0378; J0360; J0696; J0780; J1644; J1815; J1885; J2060; J2270; J2405; J3480; J3490; J7030; Q9967